=== PATIENT | male | born 1955 | race Caucasian/White ===

== ENCOUNTER 2020-04-07 12:24 | Outpatient (REF) | payer SELFPAY ==
[2020-04-07 21:01] LABS: Anion Gap 11.4 mmol/L (3-11); BUN 13 mg/dL (7-18); CO2 26.6 mmol/L (21.0-32.0); CREATININE 0.7 mg/dL (0.70-1.30); Calcium 9.4 mg/dL (8.5-10.1); Calculated LDL 41 mg/dL (<100); Chloride 104 mmol/L (98-107); Cholesterol 127 mg/dL (<200); Glucose 110 mg/dL (74-106); HDL Cholesterol 41 mg/dL (40-60); Potassium 4.3 mmol/L (3.5-5.1); Sodium 142 mmol/L (136-145); Triglyceride 229 mg/dL (<150)
[2020-04-07 21:09] LABS: Hemoglobin A1C 5.9 % (<5.7)
== END 2020-04-07 12:25 | disposition home or self-care (01) ==
LOC: NCHCN 12:24
PROVIDERS: PCP Nurse Practitioner Family; Visit Provider Nurse Practitioner Family
DX: I10 Essential (primary) hypertension (principal); R78.5 Finding of other psychotropic drug in blood; Z13.1 Encounter for screening for diabetes mellitus
CPT/HCPCS: 80048; 80061; 83036

== ENCOUNTER 2021-07-16 08:56 | Outpatient (REF) | payer OTHER, SELFPAY ==
[2021-07-16 14:43] LABS: Hemoglobin A1C 5.7 % (<5.7)
[2021-07-16 14:58] LABS: Anion Gap 11.1 mmol/L (3-11); BUN 15 mg/dL (7-18); CO2 23.9 mmol/L (21.0-32.0); CREATININE 0.9 mg/dL (0.70-1.30); Calcium 8.9 mg/dL (8.5-10.1); Calculated LDL 66 mg/dL (<100); Chloride 106 mmol/L (98-107); Cholesterol 128 mg/dL (<200); Glucose 102 mg/dL (74-106); HDL Cholesterol 38 mg/dL (40-60); Potassium 4.1 mmol/L (3.5-5.1); Sodium 141 mmol/L (136-145); Triglyceride 121 mg/dL (<150)
== END 2021-07-16 08:57 | disposition home or self-care (01) ==
LOC: NCHCN 08:56
PROVIDERS: PCP Nurse Practitioner Family; Visit Provider Nurse Practitioner Family
DX: R73.03 Prediabetes (principal); E78.5 Hyperlipidemia, unspecified; I10 Essential (primary) hypertension; R53.83 Other fatigue
CPT/HCPCS: 80048; 80061; 83036

== ENCOUNTER 2022-05-05 15:10 | Outpatient (REF) | payer MEDICARE, SELFPAY ==
[2022-05-05 15:21] LABS: Hemoglobin A1C 5.8 % (<5.7)
[2022-05-05 16:01] LABS: ALT 40 U/L (16-63); AST 31 U/L (15-37); Albumin 4.2 g/dL (3.4-5.0); Alkaline Phosphatase 72 U/L (46-116); Anion Gap 6.3 mmol/L (3-11); BUN 9 mg/dL (7-18); Bilirubin, Total 0.8 mg/dL (0.2-1.0); CO2 26.7 mmol/L (21.0-32.0); CREATININE 0.9 mg/dL (0.70-1.30); Calcium 9.5 mg/dL (8.5-10.1); Calculated LDL 52 mg/dL (<100); Chloride 105 mmol/L (98-107); Cholesterol 115 mg/dL (<200); Estimated GFR 92.45 (mL/min/1.73m2); Glucose 97 mg/dL (74-106); HDL Cholesterol 43 mg/dL (40-60); Potassium 4.1 mmol/L (3.5-5.1); Sodium 138 mmol/L (136-145); Total Protein 7.4 g/dL (6.4-8.2); Triglyceride 102 mg/dL (<150)
[2022-05-05 22:33] LABS: PSA, Screening 0.6 ng/mL (<=4.5)
== END 2022-05-05 15:11 | disposition home or self-care (01) ==
LOC: NCHCN 15:10
PROVIDERS: PCP Nurse Practitioner Family; Visit Provider Nurse Practitioner Family
DX: E78.5 Hyperlipidemia, unspecified (principal); R73.03 Prediabetes; Z12.5 Encounter for screening for malignant neoplasm of prostate; I10 Essential (primary) hypertension; Z68.29 Body mass index [BMI] 29.0-29.9, adult
CPT/HCPCS: 80053; 80061; 84153; 83036

== ENCOUNTER 2022-11-10 10:00 | Outpatient (REF) | payer MEDICARE, SELFPAY ==
[2022-11-10 14:46] LABS: HCT 48.6 % (40.0-50.0); HGB 16.7 g/dL (13.5-17.5); MCH 31.9 pg (27.0-33.0); MCHC 34.4 % (32.0-36.0); MCV 93 fL (80-95); MPV 10.1 fL (8.0-11.0); Platelet Count 184 10^3/uL (130-400); RBC 5.23 10^6/uL (4.36-5.78); WBC 6.62 10^3/uL (4.4-10.8)
[2022-11-10 15:22] LABS: Hemoglobin A1C 5.8 % (<5.7)
[2022-11-10 17:54] LABS: Anion Gap 10.9 mmol/L (3-11); BUN 17 mg/dL (7-18); CO2 25.1 mmol/L (21.0-32.0); CREATININE 0.9 mg/dL (0.70-1.30); Calcium 9.3 mg/dL (8.5-10.1); Chloride 103 mmol/L (98-107); Estimated GFR 92.45 (mL/min/1.73m2); Ferritin 365 ng/mL (26-388); Glucose 112 mg/dL (74-106); Potassium 3.9 mmol/L (3.5-5.1); Sodium 139 mmol/L (136-145); TSH (W/Ref FT4) 0.81 uIU/mL (0.36-3.74)
== END 2022-11-10 10:01 | disposition home or self-care (01) ==
LOC: NCHCN 10:00
PROVIDERS: PCP Nurse Practitioner Family; Visit Provider Nurse Practitioner Family
DX: R53.83 Other fatigue (principal); I25.10 Atherosclerotic heart disease of native coronary artery without angina pectoris; R73.03 Prediabetes; R79.89 Other specified abnormal findings of blood chemistry
CPT/HCPCS: 80048; 85027; 82728; 83036; 84443

== ENCOUNTER 2023-08-21 15:01 | Outpatient (REF) | payer MEDICARE, SELFPAY ==
[2023-08-21 21:29] LABS: HCT 48.3 % (40.0-50.0); HGB 16.6 g/dL (13.5-17.5); MCH 32.2 pg (27.0-33.0); MCHC 34.4 % (32.0-36.0); MCV 94 fL (80-95); Platelet Count 196 10^3/uL (130-400); RBC 5.15 10^6/uL (4.36-5.78); RDW 12.8 % (11.8-14.1); RDW-SD 44.5 fL; WBC 7.24 10^3/uL (4.4-10.8)
[2023-08-21 21:46] LABS: Hemoglobin A1C 5.7 % (<5.7)
[2023-08-21 22:10] LABS: ALT 50 U/L (16-63); AST 38 U/L (15-37); Albumin 4.6 g/dL (3.4-5.0); Alkaline Phosphatase 89 U/L (46-116); Anion Gap 7.3 mmol/L (3-11); BUN 14 mg/dL (7-18); Bilirubin, Total 1.16 mg/dL (0.2-1.0); CO2 27.7 mmol/L (21.0-32.0); CREATININE 0.9 mg/dL (0.70-1.30); Calcium 9.9 mg/dL (8.5-10.1); Calculated LDL 60 mg/dL (<100); Chloride 103 mmol/L (98-107); Cholesterol 132 mg/dL (<200); Estimated GFR 91.88 (mL/min/1.73m2); Ferritin 403 ng/mL (26-388); Glucose 87 mg/dL (74-106); HDL Cholesterol 44 mg/dL (40-60); Magnesium 2.2 mg/dL (1.8-2.4); Potassium 4.4 mmol/L (3.5-5.1); Sodium 138 mmol/L (136-145); Total Protein 7.8 g/dL (6.4-8.2); Triglyceride 143 mg/dL (<150); Vitamin B12 702 pg/mL (193-986)
[2023-08-22 23:34] LABS: PSA, Screening 0.6 ng/mL (<=6.5)
== END 2023-08-21 15:02 | disposition home or self-care (01) ==
LOC: NCHCN 15:01
PROVIDERS: Visit Provider Nurse Practitioner Family
DX: E78.00 Pure hypercholesterolemia, unspecified (principal); R53.83 Other fatigue; Z12.5 Encounter for screening for malignant neoplasm of prostate
CPT/HCPCS: 80053; 80061; 84153; 85027; 82607; 82728; 83036; 83735

== ENCOUNTER 2024-08-20 22:11 | Outpatient (REF) | payer MEDICARE, SELFPAY ==
[2024-08-20 22:29] LABS: HCT 47.5 % (40.0-50.0); HGB 16.3 g/dL (13.5-17.5); MCH 32.2 pg (27.0-33.0); MCHC 34.3 % (32.0-36.0); MCV 94 fL (80-95); MPV 9.8 fL (8.0-11.0); Platelet Count 189 10^3/uL (130-400); RBC 5.06 10^6/uL (4.36-5.78); RDW 12.6 % (11.8-14.1); RDW-SD 43.1 fL; WBC 6.64 10^3/uL (4.4-10.8)
[2024-08-20 22:38] LABS: ALT 42 U/L (16-63); AST 27 U/L (15-37); Albumin 4.3 g/dL (3.4-5.0); Alkaline Phosphatase 80 U/L (46-116); Anion Gap 6.4 mmol/L (3-11); BUN 13 mg/dL (7-18); Bilirubin, Total 0.8 mg/dL (0.2-1.0); CO2 29.6 mmol/L (21.0-32.0); Calcium 9.5 mg/dL (8.5-10.1); Chloride 103 mmol/L (98-107); Estimated GFR 98.51 (mL/min/1.73m2); Glucose 98 mg/dL (74-106); Potassium 4.6 mmol/L (3.5-5.1); Sodium 139 mmol/L (136-145); Total Protein 7.1 g/dL (6.4-8.2); Uric Acid 3.8 mg/dL (3.5-7.2)
[2024-08-20 22:50] LABS: Calculated LDL 54 mg/dL (<100); Cholesterol 126 mg/dL (<200); HDL Cholesterol 41 mg/dL (>or=40); Triglyceride 159 mg/dL (<150)
[2024-08-21 18:06] LABS: PSA, Screening 0.6 ng/mL (<=6.5)
== END 2024-08-20 22:12 | disposition home or self-care (01) ==
LOC: NCHCN 22:11
PROVIDERS: Visit Provider Nurse Practitioner Family
DX: I10 Essential (primary) hypertension (principal); Z12.5 Encounter for screening for malignant neoplasm of prostate; Z51.81 Encounter for therapeutic drug level monitoring; M10.9 Gout, unspecified
CPT/HCPCS: 80053; 80061; 84153; 85027; 84550